=== PATIENT | female | born 1950 | race Caucasian/White ===

== ENCOUNTER 2018-11-06 12:04 | Emergency (ER) | payer MEDICARE, BC, OTHER ==
--- NOTE | 2018-11-06 13:29 | EDM.PDOC ---
ED HPI GENERAL MEDICAL PROBLEM - General Chief Complaint: Lower Extremity Injury/Pain Stated Complaint: LEFT LEG HAS MANY SMALL BRUISES TENDER TO THE TOUC Time Seen by Provider: 11/06/18 12:49 Source of Information: Reports: Patient History Limitations: Reports: No Limitations - History of Present Illness INITIAL COMMENTS - FREE TEXT/NARRATIVE: 68 yo pt presents to ER bruising to her left leg. She had a torn minicous repaired on October 26. She noticed bruising in the area above and below knee. No pain or know injury. no distil swelling. pain and swelling in knee has been minimal - Related Data Allergies Allergy/AdvReac Type Severity Reaction Status Date / Time No Known Allergies Allergy Verified 11/06/18 13:04 Home Meds: Home Meds Aspirin 11/06/18 [History] Ibuprofen 11/06/18 [History] Levothyroxine 11/06/18 [History] Sertraline HCl 11/06/18 [History] Simvastatin 11/06/18 [History] Past Medical History Cardiovascular History: Reports: High Cholesterol, Hypertension Genitourinary History: Reports: Other (See Below) Other Genitourinary History: renal coil - Past Surgical History Musculoskeletal Surgical History: Reports: Arthroscopic Knee Social & Family History - Tobacco Use Smoking Status *Q: Current Every Day Smoker Years of Tobacco use: 50 Packs/Tins Daily: 0.5 Review of Systems - Review of Systems Review Of Systems: See Below Constitutional: Denies: Chills, Fever Respiratory: Denies: Shortness of Breath, Wheezing Cardiovascular: Denies: Chest Pain ED EXAM, GENERAL - Physical Exam Exam: See Below Exam Limited By: No Limitations General Appearance: Alert, WD/WN, No Apparent Distress Respiratory/Chest: No: No Respiratory Distress, Lungs Clear Cardiovascular: No: Normal Peripheral Pulses, Regular Rate, Rhythm GI/Abdominal: No: Soft, Non-Tender Extremities: Other (posterior upper leg just above knee and lower posterior leg just below knee. no distial edema. CMS intact) Skin Exam: Warm, Dry, Intact Course - Vital Signs Last Recorded V/S: Last Vital Signs Temp 37.2 C 11/06/18 13:10 Pulse 71 11/06/18 13:10 Resp 13 11/06/18 13:10 BP 148/76 H 11/06/18 13:10 Pulse Ox 95 11/06/18 13:10 Departure - Departure Time of Disposition: 13:24 Disposition: Home, Self-Care 01 Condition: Good Clinical Impression: Bruising - Discharge Information *PRESCRIPTION DRUG MONITORING PROGRAM REVIEWED*: Not Applicable *COPY OF PRESCRIPTION DRUG MONITORING REPORT IN PATIENT AWA: Not Applicable Instructions: Contusion, [id number] Referrals: Rosmery Caraballo PA [Primary Care Provider] - Forms: ED Department Discharge Additional Instructions: the bruising is from the surgery
== END 2018-11-06 13:42 | disposition home or self-care (01) ==
LOC: JP.ED 12:04
DX: M96.840 Postprocedural hematoma of a musculoskeletal structure following a musculoskeletal system procedure (principal); F17.210 Nicotine dependence, cigarettes, uncomplicated; I10 Essential (primary) hypertension; E78.00 Pure hypercholesterolemia, unspecified; Z79.82 Long term (current) use of aspirin; Z79.899 Other long term (current) drug therapy
CPT/HCPCS: 99281; 99283